=== PATIENT | male | born 1950 | race Caucasian/White ===

== ENCOUNTER 2017-04-02 14:47 | Emergency (ER) | payer OTHER ==
[2017-04-02 14:14] LABS: BASOPHILS 0.6 %; BASOPHILS ABSOLUTE 0.03 10/3/uL (0.0-0.16); EOSINOPHILS 0.8 %; EOSINOPHILS ABSOLUTE 0.04 10/3/uL (0.0-0.53); HEMATOCRIT 44.6 % (40.0-51.0); HEMOGLOBIN 16.4 g/dL (13.6-17.8); IMMATURE GRANULOCYTES 0.6 %; IMMATURE GRANULOCYTES ABSOLUTE 0.03 10/3/uL (0.0-0.11); LYMPHOCYTES 14.5 %; LYMPHOCYTES ABSOLUTE 0.74 10/3/uL (0.67-4.30); MEAN CORPUS HGB CONC 36.8 g/dL (32.0-36.0); MEAN CORPUSCULAR HEMOGLOB 32.3 pg (26.0-34.0); MEAN CORPUSCULAR VOLUME 87.8 fL (80-100); MEAN PLATELET VOLUME 10.9 fL (9.2-13.0); MONOCYTES 5.7 %; MONOCYTES ABSOLUTE 0.29 10/3/uL (0.21-1.20); NEUTROPHILS 77.8 %; NEUTROPHILS ABSOLUTE 3.99 10/3/uL (2.02-8.40); PLATELET COUNT 143 10/3/uL (150-400); RBC DISTRIBUTION WIDTH 13.3 % (12.0-16.0); RED CELL COUNT 5.08 10/6/uL (4.7-6.1); WHITE BLOOD CELLS 5.1 10/3/uL (4.5-10.5)
[2017-04-02 14:17] LABS: MANUAL DIFF NO %
[2017-04-02 14:20] LABS: INTERNATIONAL NORMAL RATI 1.1 UNITS (-); PARTIAL THROMBO TIME 28.1 SEC (22.5-37.2); PROTIME (NOT ORD) 14.2 SEC (12.0-14.5)
[2017-04-02 14:33] LABS: BUN (BLOOD UREA NITROGEN) 10 MG/DL (6-23); CALCIUM, SERUM 9.6 MG/DL (8.5-10.4); CHEST PAIN PROFILE TAT 0 Hrs 25 Mins; CHLORIDE, SERUM 105 MMOL/L (96-112); CO2 (CARBON DIOXIDE) 29 MMOL/L (24-34); CREATININE 0.81 MG/DL (0.70-1.30); GFR AFRICAN AMERICAN 106 ML/MIN (>=60); GFR NON AFRICAN AMERICAN 91 ML/MIN (>=60); GLUCOSE, SERUM 106 MG/DL (60-99); PLATELET ESTIMATE SLT DEC (ADEQUATE); POTASSIUM, SERUM 3.6 MMOL/L (3.5-5.3); RBC MORPHOLOGY NORM (NORMAL); SODIUM, SERUM 139 MMOL/L (135-148); TROPONIN I <0.02 NG/ML (<0.05)
[~2017-04-02 14:47] MED LIST: MULTI-VIT HP OR; MULTIVIT/MIN PO; [UNRECOGNIZED DRUG - OTHER] PO
== END 2017-04-02 15:26 | disposition home or self-care (01) ==
LOC: ER 14:47
PROVIDERS: Nurse Practitioner Acute Care
DX: R07.89 Other chest pain (principal); Z88.2 Allergy status to sulfonamides; Z88.8 Allergy status to other drugs, medicaments and biological substances; Z79.899 Other long term (current) drug therapy
CPT/HCPCS: 71010; 80048; 83735; 84484; 85025; 85610; 85730; 93005; 99285